=== PATIENT | male | born 1955 | race Caucasian/White ===

== ENCOUNTER 2017-06-03 13:35 | Outpatient (CLI) | payer OTHER ==
--- NOTE | 2017-06-03 13:56 | RAD ---
LEFT ELBOW FOUR VIEWS: History: 61-year-old male with history of left elbow pain since Friday with a fall. FINDINGS: There is prominent focal soft tissue swelling over the olecranon which could represent acute soft tis leeroy post-traumatic swelling. This could also represent findings for an olecranon bursitis. Degenerati ve changes of the left elbow joint without acute fracture or dislocation. IMPRESSION: No acute fracture or dislocation. Olecranon soft tissue swelling. POS: [facility]
== END 2017-06-03 13:36 | disposition home or self-care (01) ==
LOC: SCSRAD 13:35
PROVIDERS: ATTEND Nurse Practitioner Family
DX: M25.522 Pain in left elbow (principal); M79.89 Other specified soft tissue disorders

== ENCOUNTER 2017-12-23 15:23 | Outpatient (CLI) | payer OTHER ==
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
== END 2017-12-23 15:24 | disposition home or self-care (01) ==
LOC: SCSRAD 15:23
PROVIDERS: ATTEND Nurse Practitioner Family
DX: S22.42XA Multiple fractures of ribs, left side, initial encounter for closed fracture (principal)

== ENCOUNTER 2020-02-03 00:58 | Observation (INO) | payer MEDICARE, OTHER ==
[2020-02-03] MEDS ORDERED: Aspirin 325 MG TAB ONE ×2 (01:22→09:07)
[2020-02-03 01:38] LABS: #Eosinphils 0.1 thou/uL (0.0-0.7); #Lymphocytes 1.1 thou/uL (1.20-3.40); #Monocytes 0.7 thou/uL (0.11-0.59); #Neutrophils 8.7 thou/uL (1.40-6.50); %Basophils 0.2 % (0.0-1.0); %Eosinophils 1.3 % (0.0-10.0); %Lymphocytes 10.6 % (21.0-51.0); %Monocytes 6.4 % (0.0-10.0); %Neutrophils 81.6 % (42.0-75.0); Hemoglobin 12.6 g/dL (14.0-18.0); Mean Corpuscular HGB CONC 33.7 g/dL (32.0-36.0); Mean Corpuscular Hemoglobin 31.8 pg (27.0-31.0); Mean Corpuscular Volume 94.5 fL (78.0-98.0); Mean Platelet Volume 9.1 fL (7.4-10.4); Platelet Count 144 thou/uL (130-400); RBC Distribution Width 13.4 % (11.5-14.5); Red Blood Cell (RBC) Count 3.97 mill/uL (4.70-6.10); White Blood Cell (WBC) Count 10.7 thou/uL (4.8-10.8)
[2020-02-03 02:24] LABS: CKMB 1.1 ng/mL (0-6.6)
[2020-02-03 02:38] LABS: Albumin 3.3 g/dL (3.4-4.8)
[2020-02-03 02:39] LABS: Calcium 8.6 mg/dL (7.8-10.44); Chloride 106 mmol/L (98-107); Potassium 4.1 mmol/L (3.5-5.1); Sodium 139 mmol/L (136-145)
[2020-02-03 02:40] LABS: Globulin 3.7 g/dL (2.4-3.5); Glucose 177 mg/dL (80-115)
[2020-02-03 02:41] LABS: Anion Gap 16 mmol/L (10-20); Carbon Dioxide 21 mmol/L (23-31)
[2020-02-03 02:42] LABS: Bilirubin, Total 1.7 mg/dL (0.2-1.2)
[2020-02-03 02:43] LABS: Alkaline Phosphatase 79 U/L (40-110); Calc. Creatinine Clearance 0 mL/min (70-130); Estimated GFR-MDRD 16
[2020-02-03 02:44] LABS: BUN (Urea Nitrogen) 43 mg/dL (8.4-25.7)
[2020-02-03 02:45] LABS: AST (SGOT) 15 U/L (5-34)
[2020-02-03 02:46] LABS: ALT (SGPT) 27 U/L (8-55); Lipase 33 U/L (8-78)
[2020-02-03] MEDS ORDERED: Nitroglycerin 0.4 MG TAB (25 Tab Bottle) SL PRN (03:04)
[2020-02-03] MEDS ORDERED: Dextrose 50% Abboject 50 ML SYRINGE SLOW IVP PRN (03:11)
[2020-02-03] MEDS ORDERED: HumaLOG 300 UNITS/3 ML VIAL SC PRN (03:11)
[2020-02-03] MEDS ORDERED: Dextrose 5% in Water 1,000 ML IV PRN (03:11)
--- NOTE | 2020-02-03 03:48 | PDOC.BPN ---
- Brief Progress Note [id number] HP dictated
[2020-02-03] MEDS ORDERED: Acetaminophen 500 MG TAB ONE (04:17)
--- NOTE | 2020-02-03 05:01 | HP ---
CHIEF COMPLAINT: Shortness of breath. HISTORY OF PRESENT ILLNESS: Mr. London is a 64-year-old male with past medical history of congestive heart failure, hypertension, hyperlipidemia, diabetes type 2, defibrillator, paroxysmal atrial fibrillation, on anticoagulant Eliquis? presents to the emergency room with shortness of breath mainly on exertion and when lying supine at night. The patient takes furosemide, but went without the medication for two weeks because he is currently in [facility]. He denies chest pain. Denies fevers, chills, nausea, vomiting, or abdominal pain. On workup in the emergency room, the patient was orthopneic, but the lab work showed elevated BUN of 43 and creatinine of 3.7, glucose is 177. Troponin is mildly elevated at 0.058. BNP is elevated at 751. Chest x-ray unremarkable. The patient was given aspirin in the emergency room. The patient is being admitted to the hospital for further management. PAST MEDICAL HISTORY: 1. Congestive heart failure. 2. Defibrillator. 3. Atrial fibrillation. 4. Coronary artery disease. 5. Diabetes, type 2. 6. Hypertension. 7. Hyperlipidemia. 8. Past cardiac history of cardiac stent. 9. AICD. 10. Left shoulder surgery. SOCIAL HISTORY: The patient drinks socially. No smoking history. Denies drug use. Currently, the patient is in [facility]. FAMILY HISTORY: Reviewed and noncontributory. HOME MEDICATIONS: See home medication reconciliation form, but his medications include, 1. Amiodarone. 2. Carvedilol. 3. Eliquis. 4. Furosemide once a day. 5. Glipizide. 6. Isosorbide. ALLERGIES: ALLERGIC TO AMBIEN. REVIEW OF SYSTEMS: Review of 14 systems negative except what is mentioned in history of present illness. PHYSICAL EXAMINATION: GENERAL: The patient is awake, alert, in mild distress, orthopneic. HEAD AND NECK: Normocephalic, atraumatic. Neck is supple. CHEST: Few bibasilar crackles. HEART: S1, S2. Regular. ABDOMEN: Soft, nontender. Bowel sounds present. NEUROLOGIC: Awake, alert, and oriented x3. No focal deficits. PSYCH: Unable to assess. EXTREMITIES: No clubbing or cyanosis. GENITOURINARY: No suprapubic tenderness. No flank tenderness. SKIN: No apparent rash. LABORATORY DATA: As mentioned above in the history of present illness. IMAGING STUDIES: As mentioned above in the history of present illness. ASSESSMENT: 1. Congestive heart failure with exacerbation, systolic? 2. AICD. 3. History of atrial fibrillation. 4. Anticoagulated on Eliquis. 5. Indeterminate troponin. 6. Diabetes mellitus, type 2. 7. Hyperlipidemia. 8. Hypertension. PLAN: 1. Admit. 2. Tele monitor. 3. Aspirin. 4. Serial troponins. 5. IV diuresis. 6. 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 for evaluation and further recommendations. 7. Reconcile home medications. 8. DVT prophylaxis. Continue home anticoagulation. 9. Expected length of stay, at least 1 midnight if the patient is stable. Job ID: [id number]
[2020-02-03] MEDS ORDERED: Furosemide 40 MG/4 ML VIAL SLOW IVP SCH (06:00)
[2020-02-03] MEDS ORDERED: Furosemide 40 MG/4 ML VIAL ONE ×2 (06:45→14:13)
[2020-02-03] MEDS: Furosemide 40 MG/4 ML VIAL SLOW IVP SCH ×2 (06:45→14:54)
--- NOTE | 2020-02-03 08:17 | RAD ---
EXAM: Portable chest PROVIDED CLINICAL HISTORY: Shortness of breath COMPARISON: 12/07/2018 FINDINGS: Cardiac and mediastinal silhouette stable in appearance. Left subclavian cardiac pacing device is red emonstrated. No focal consolidation, pleural fluid or pneumothorax evident. IMPRESSION: No evidence for an acute cardiopulmonary process.
[2020-02-03] MEDS ORDERED: Enoxaparin Sodium 80 MG/0.8 ML SYRINGE SC SCH (09:00)
[2020-02-03] MEDS ORDERED: Aspirin 325 MG TAB PO SCH (09:00)
[2020-02-03 09:25] LABS: Troponin I 0.053 ng/mL (< 0.028)
[2020-02-03 14:07] LABS: SARS-CoV-2 MS2 Positive; SARS-CoV-2 N Gene Negative; SARS-CoV-2 S Gene Negative; SARS-CoV-2 by NAA Not Detected (NotDetected); SARS-CoV-2 orf1ab Negative
[2020-02-03 14:19] LABS: Troponin I 0.047 ng/mL (< 0.028)
--- NOTE | 2020-02-03 17:55 | CON ---
DATE OF CONSULTATION: REASON FOR CONSULTATION: Congestive heart failure. PRIMARY FEEDER TENDER: Dr. Melchor Ochoa. HISTORY OF PRESENT ILLNESS: Mr. London is a 64-year-old gentleman who has been seen and evaluated by Dr. Melchor Ochoa in the past. He recently presented with increased shortness of breath. He recently was incarcerated. He has been on anticoagulation therapy in the past. He has been diuresed while in the emergency room. He is awaiting transfer to telemetry monitoring. He states he is feeling much better, would like to go back to the correction. He has a hearing tomorrow that he cannot miss. PAST MEDICAL HISTORY: Systolic dysfunction status post ICD, atrial fibrillation, CAD, diabetes mellitus, hypertension, hyperlipidemia, stent placement x1, and shoulder surgery. SOCIAL HISTORY: No current tobacco or alcohol use. He is currently incarcerated. HOME MEDICATIONS: Include: 1. Carvedilol. 2. Amiodarone. 3. Eliquis. 4. Lasix. 5. Glipizide. 6. Isosorbide. ALLERGIES: AMBIEN. REVIEW OF SYSTEMS: A 10-point review of systems is reviewed as above, otherwise negative. PHYSICAL EXAMINATION: GENERAL: Patient is a pleasant male who is in no acute distress. The patient appears their stated age. VITAL SIGNS: Blood pressure 110/70, pulse 80, and respirations 20. NEUROLOGIC: The patient is alert and oriented x3 with no focal neurologic deficits. HEENT: Sclerae without icterus. Mouth has moist mucous membranes with normal pallor. NECK: No JVD. Carotid upstroke brisk. No bruits bilaterally. LUNGS: Clear to auscultation with unlabored respirations. BACK: No scoliosis or kyphosis. CARDIAC: Regular rate and rhythm with normal S1 and S2. No S3 or S4 noted. No significant rubs, murmurs, thrills, or gallops noted throughout the precordium. PMI is not displaced. There is no parasternal heave. ABDOMEN: Soft, nontender, nondistended. No peritoneal signs present. No hepatosplenomegaly. No abnormal striae. EXTREMITIES: 2+ femoral and 2+ dorsalis pedis pulses. No cyanosis, clubbing, or edema. SKIN: No gross abnormalities. PERTINENT LABORATORY DATA: Hemoglobin 12.6. Creatinine 3.76. Peak troponin 0.047. Albumin 3.3. BNP of 751. IMPRESSION: 1. Eiilv-tn-uprwlhc systolic heart failure. 2. Coronary artery disease. 3. Status post ICD. 4. Chronic kidney disease followed by Dr. Chapman. RECOMMENDATIONS: Mr. London states he has diuresed while in the emergency room. He is feeling much better and is near his baseline. At this point, we will continue with outpatient medication. I did college and career counselor him on decreasing his salt and fluid intake. Recommendations on kidney management per Dr. Helder Chapman. Job ID: [id number]
--- NOTE | 2020-02-04 02:09 | DIS ---
DATE OF ADMISSION: 02/03/2020 DATE OF DISCHARGE: 02/03/2020 DISCHARGE DIAGNOSES: 1. Acute congestive heart failure exacerbation, suspected systolic, resolving. 2. Chronic atrial fibrillation, on chronic anticoagulation with Eliquis. 3. Type 2 myocardial infarction due to demand ischemia in the context of #1. 4. Diabetes mellitus, type 2. 5. Hyperlipidemia. 6. Hypertension. 7. Chronic kidney disease, stage 4. CONSULTATIONS: Dr. Robles with Cardiology Service. PERTINENT LABORATORY AND X-RAY FINDINGS: Creatinine 3.76. Estimated GFR of 16. Troponin I ranged between 0.047 to 0.058. BNP 751, previously noted 273 on 11/03/2019. Lipase 33. CBC showed a white blood cell count of 10.7, hemoglobin 12.6, hematocrit 38, platelet count 144 with 82% neutrophils. COVID-19 PCR not detected on 02/03/2020. Portable chest x-ray dated 02/03/2020 showed no acute cardiopulmonary process. HOSPITAL COURSE: The patient was evaluated in the emergency room after presenting from the [facility] for increased shortness of breath in the context of known congestive heart failure, hypertension, hyperlipidemia, and diabetes mellitus type 2. The patient underwent evaluation showing elevated BNP over 700, receiving IV Lasix in the emergency room. The patient rapidly clinically improved with diuretic therapy with excellent diuresis and symptomatic improvement. The patient was evaluated by the Cardiology Service due to mild troponin I elevation and concern for heart failure. The patient was evaluated and cleared for discharge back to the [facility] due to stabilization in the emergency room with IV Lasix. The patient was encouraged to continue oral Lasix and maintain consistent monitoring of his weight and dosing of the medications. Overall, the patient did remain clinically stable during the hospital course, tolerating regular oral intake. I have examined the patient at the time of discharge and discussed followup instructions. The patient verbalizes understanding and agreement, ready for discharge on 02/03/2020. DISCHARGE MEDICATIONS: 1. Enteric-coated aspirin 81 mg p.o. daily. 2. Allopurinol 100 mg p.o. daily. 3. Carvedilol 25 mg p.o. b.i.d. 4. Amiodarone 200 mg p.o. daily. 5. Eliquis 5 mg p.o. b.i.d. 6. Lasix 40 mg p.o. daily. 7. Glipizide 5 mg p.o. daily. 8. Isosorbide dinitrate 10 mg p.o. daily. 9. Tamsulosin 0.4 mg p.o. daily. FOLLOWUP: The patient may follow up with his primary care provider at the [facility]. The patient may follow up with his primary registry rn, Dr. Helder Chapman. CONDITION ON DISCHARGE: Fair. ACTIVITY: Ad-simran. DIET: Heart healthy, ADA, and renal. CODE STATUS: Full. DISPOSITION: [facility] on 02/03/2020. Job ID: [id number]
--- NOTE | 2020-02-05 16:17 | EKG ---
Test Reason : Blood Pressure : / mmHG Vent. Rate : 079 BPM Atrial Rate : 079 BPM P-R Int : 212 ms QRS Dur : 126 ms QT Int : 436 ms P-R-T Axes : 031 031 064 degrees QTc Int : 499 ms Electronic atrial pacemaker Non-specific intra-ventricular conduction block Nonspecific T wave abnormality Abnormal ECG Confirmed by CLAUS ELIZABETH M.D. ([id number]), editor city [place] MIRANDA ([id number]) on 02/05/2020 4:17:18 PM Referred By: Confirmed By:CLAUS ELIZABETH M.D.
--- NOTE | 2020-02-05 16:17 | EKG ---
Test Reason : Blood Pressure : / mmHG Vent. Rate : 080 BPM Atrial Rate : 080 BPM P-R Int : 204 ms QRS Dur : 122 ms QT Int : 432 ms P-R-T Axes : 065 053 049 degrees QTc Int : 498 ms Electronic atrial pacemaker Non-specific intra-ventricular conduction delay Nonspecific ST and T wave abnormality Abnormal ECG Confirmed by CLAUS ELIZABETH M.D. ([id number]), sports editor SMITHA MIRANDA ([id number]) on 02/05/2020 4:17:16 PM Referred By: Confirmed By:CLAUS ELIZABETH M.D.
== END 2020-02-03 16:24 ==
LOC: EEVIPCON 00:58 → ERS 00:58 → ERHOLD 03:39
PROVIDERS: ADMIT Internal Medicine; ATTEND Internal Medicine
DX: I13.0 Hypertensive heart and chronic kidney disease with heart failure and stage 1 through stage 4 chronic kidney disease, or unspecified chronic kidney disease (principal); E11.22 Type 2 diabetes mellitus with diabetic chronic kidney disease; N18.4 Chronic kidney disease, stage 4 (severe); I50.23 Acute on chronic systolic (congestive) heart failure; I48.0 Paroxysmal atrial fibrillation; I21.A1 Myocardial infarction type 2; E78.5 Hyperlipidemia, unspecified; I25.10 Atherosclerotic heart disease of native coronary artery without angina pectoris; Z79.01 Long term (current) use of anticoagulants; Z79.82 Long term (current) use of aspirin; Z79.84 Long term (current) use of oral hypoglycemic drugs; Z79.899 Other long term (current) drug therapy; Z88.8 Allergy status to other drugs, medicaments and biological substances; Z95.5 Presence of coronary angioplasty implant and graft; Z95.810 Presence of automatic (implantable) cardiac defibrillator; Z20.828 Contact with and (suspected) exposure to other viral communicable diseases
CPT/HCPCS: 36415; 36416; 71045; 80053; 82553; 83690; 83880; 84484; 85025; 87635; 93005; 94760; 96374; 96376; G0378; J1940; U0003

== ENCOUNTER 2021-06-21 12:28 | Outpatient (CLI) | payer MEDICARE ==
[2021-06-21 23:38] LABS: SARS-CoV-2 PCR by NAA Not Detected (NotDetected)
== END 2021-06-21 12:29 | disposition home or self-care (01) ==
LOC: LABBT 12:28
PROVIDERS: ATTEND Specialist
DX: N18.6 End stage renal disease (principal); Z20.822 Contact with and (suspected) exposure to COVID-19
CPT/HCPCS: U0003; U0005

== ENCOUNTER 2021-07-05 12:41 | Outpatient (CLI) | payer MEDICARE ==
[2021-07-06 00:18] LABS: SARS-CoV-2 PCR by NAA Not Detected (NotDetected)
== END 2021-07-05 12:42 | disposition home or self-care (01) ==
LOC: LABBT 12:41
PROVIDERS: ATTEND Specialist
DX: Z01.818 Encounter for other preprocedural examination (principal); N18.6 End stage renal disease; Z20.822 Contact with and (suspected) exposure to COVID-19
CPT/HCPCS: 93005; U0003; U0005; 93010

== ENCOUNTER 2021-07-10 10:06 | Day surgery (SDC) | payer MEDICARE ==
[2021-07-05 12:09] VITALS: BMI 29.7
[2021-07-10] MEDS ORDERED: Bupivacaine PF 0.5% 30 ML VIAL ONE (11:34)
[2021-07-10] MEDS ORDERED: Heparin 5,000 UNITS/ML VIAL ONE (11:34)
[2021-07-10] MEDS ORDERED: Lidocaine 1% w/Epinephrine 1:100K 20 ML VIAL ONE (11:34)
[2021-07-10] MEDS ORDERED: Protamine Sulfate 50 MG/5 ML VIAL ONE (11:34)
[2021-07-10 11:37] LABS: Anion Gap 18 mmol/L (10-20); BUN (Urea Nitrogen) 54 mg/dL (8.4-25.7); Calc. Creatinine Clearance 17 mL/min (70-130); Calcium 9.2 mg/dL (7.8-10.44); Carbon Dioxide 23 mmol/L (23-31); Chloride 103 mmol/L (98-107); Glucose 127 mg/dL (80-115); Potassium 5.2 mmol/L (3.5-5.1); Sodium 139 mmol/L (136-145)
[2021-07-10] MEDS ORDERED: Dexmedetomidine 200 MCG/2 ML VIAL ONE (11:37)
[2021-07-10] MEDS ORDERED: ceFAZolin (BATCH) 2 GM/100 ML BAG ONE (11:57)
[2021-07-10] MEDS ORDERED: Bupivacaine HCl 0.5%/Epinephrine 1:200,000/PF 30 ml Vial ONE (12:15)
[2021-07-10] MEDS ORDERED: diphenhydrAMINE 50 MG/ML VIAL ONE (12:15)
[2021-07-10] MEDS ORDERED: Midazolam HCl 2 mg/2 ml Vial ONE (12:38)
[2021-07-10] MEDS ORDERED: Heparin 1,000 UNITS/ML VIAL ONE ×2 (15:23→15:25)
== END 2021-07-10 15:53 | disposition home or self-care (01) ==
LOC: SDC 10:06
PROVIDERS: ATTEND Specialist
PROC: 05SB0ZZ Reposition Right Basilic Vein, Open Approach (ICD-10-PCS; principal; 2021-07-10)
DX: N18.6 End stage renal disease (principal); Z79.01 Long term (current) use of anticoagulants; Z79.82 Long term (current) use of aspirin; Z79.84 Long term (current) use of oral hypoglycemic drugs; Z79.899 Other long term (current) drug therapy; Z88.8 Allergy status to other drugs, medicaments and biological substances; Z91.048 Other nonmedicinal substance allergy status; Z95.0 Presence of cardiac pacemaker; Z99.2 Dependence on renal dialysis
CPT/HCPCS: 80048; C1713; C1776; J0690; J1200; J1644; J2250; J2720; S0020